=== PATIENT | female | born 1945 | race Two or more races ===

== ENCOUNTER 2021-03-04 08:44 | Outpatient (CLI) | payer OTHER ==
[~2021-03-04 08:44] MED LIST: ALTACE5 MG PO; AMBIEN5 MG PO; EVISTA60 MG PO; METFORMIN HCL850 MG; ZOCOR20 MG PO; [UNRECOGNIZED DRUG - OTHER] PO
== END 2021-03-04 08:55 | disposition home or self-care (01) ==
LOC: RX STUDY 08:44
PROVIDERS: ATTEND Internal Medicine Gastroenterology
DX: K21.9 Gastro-esophageal reflux disease without esophagitis (principal); R10.13 Epigastric pain